=== PATIENT | female | born 1990 | race American Indian/Alaskan Native ===

== ENCOUNTER 2016-06-20 11:14 | Emergency (ER) | payer SELFPAY ==
[2016-06-20 11:36] VITALS: BP 108/74
--- NOTE | 2016-06-20 13:37 | Emergency Department Report ---
HPI - General Chief Complaint: Dental/Oral Time Seen by Provider: 06/20/16 13:05 - HPI HPI: Patient here complaining of toothache to her right upper back tooth that comes and goes. She said it feels like it swollen at the area. She says she's been taking [id number] pain medication but it's not helping. Denies any fever or chills. Denies any facial swelling or trauma. Patient reports that she has an appointment with her dentist in [place] on Tuesday but she is having a lot of pain at 6 out of 10 and she cannot wait denies any sore throat or drooling. Denies any nausea vomiting. ED Past Medical Hx - Past Medical History Previous Medical History?: Yes Hx Asthma: Yes - Surgical History Past Surgical History?: No - Family History Family history: no significant - Social History Smoking Status: Current Every Day Smoker Substance Use Type: Alcohol - Medications Home Medications: Home Medications Medication Instructions Recorded Confirmed Last Taken Type ALBUTEROL Inhaler [Proair] 2 puff IH QID PRN 08/20/14 08/20/14 Unknown History Acetaminophen/Codeine [Tylenol #3] 1 tab PO Q6H PRN #20 tab 06/20/16 Unknown Rx Amoxicillin [Amoxicillin TAB] 875 mg PO BID #20 tablet 06/20/16 Unknown Rx Ibuprofen [Motrin] 600 mg PO Q8H PRN #21 tablet 06/20/16 Unknown Rx ED Review of Systems ROS: Stated complaint: RT SIDE JAW PAIN Other details as noted in HPI Comment: All other systems reviewed and negative Constitutional: denies: chills, fever Eyes: denies: eye discharge ENT: dental pain. denies: ear pain, throat pain, congestion Respiratory: no symptoms reported Cardiovascular: denies: chest pain, palpitations, edema, syncope Gastrointestinal: denies: nausea, vomiting Musculoskeletal: denies: back pain, arthralgia Skin: denies: rash Neurological: denies: headache Physical Exam - Physical Exam Vital Signs: Vital Signs 06/20/16 11:33 Temperature 98.8 F Pulse Rate 73 Respiratory 16 Rate Blood Pressure 108/74 O2 Sat by Pulse 100 Oximetry General: This is a 26-year-old female well-nourished well-developed in no acute distress. Physical Exam: Head: Normocephalic atraumatic Mouth: Moist, no pharyngeal exudate or erythema. Uvula is midline and oral airway is patent. No gingival enlargement . Positive dental tenderness around tooth #1 noted fracture of tooth #1. Patient with some dental caries to upper and lower teeth right and left. No facial swelling. No peritonsillar abscesses. Neck: Supple, no C-spine tenderness, no tracheal deviation. Nontender to palpate. no adenopathy Ears: Bilateral TMs pearly barajas.bilateral EAC without any redness swelling or drainage Eyes: Bilateral pupils equal and reactive to light, bilateral EOM intact. Bilateral sclera and conjunctiva without injection. Normal accommodation Nose: Mucosa moist, normal mucosa. maxillary and frontal sinus non-tender to palpate. Lungs: Clear to auscultate bilaterally no rhonchi wheezes or rales. Normal work of breathing extremity; No CCE. +2 pulses. No neurovascular compromise Cardiovascular: S1-S2, regular rate rhythm. No murmurs. Skin: clean Dry and intact no rash no lesions Psych: Normal mood and behavior ED Course Vital Signs 06/20/16 11:33 Temperature 98.8 F Pulse Rate 73 Respiratory 16 Rate Blood Pressure 108/74 O2 Sat by Pulse 100 Oximetry - Reevaluation(s) Reevaluation #1: 06/20/16 13:50 Patient stable ED Medical Decision Making - Medical Decision Making ED course: I discussed the patient after evaluation that she has to follow-up with her dentist and to keep dental appointment this coming Tuesday. I informed that she has dental caries and fractured tooth and she will need to seek dental care to prevent getting widespread infection. sinus tenderness diagnosis and need to follow-up with dentist. Patient discharged home with prescription for amoxicillin, Motrin and Tylenol No. 3. Critical care attestation.: If time is entered above; I have spent that time in minutes in the direct care of this critically ill patient, excluding procedure time. ED Disposition Clinical Impression: Dental caries, Toothache Tooth fracture Qualifiers: Encounter type: initial encounter Fracture type: closed Qualified Code(s): S02.5XXA - Fracture of tooth (traumatic), initial encounter for closed fracture Disposition: DISCHARGED TO HOME OR SELFCARE Is pt being admited?: No Does the pt Need Aspirin: No Condition: Stable Instructions: Dental Caries (ED), Toothache (ED) Additional Instructions: Please follow up with your dentist as scheduled on Tuesday. Take antibiotic as prescribed. You have several dental caries and this can lead to widespread infection so he will need to follow-up with dentist for evaluation and treatment. Tylenol 3 and make you drowsy so please do not drive or operate heavy machinery while taking this medication. Prescriptions: Acetaminophen/Codeine [Tylenol #3] 1 tab PO Q6H PRN #20 tab PRN Reason: Toothache Amoxicillin [Amoxicillin TAB] 875 mg PO BID #20 tablet Ibuprofen [Motrin] 600 mg PO Q8H PRN #21 tablet PRN Reason: Pain Referrals: PRIMARY CARE,MD [Primary Care Provider] - 2-3 Days Your, Dentist [Other] - 3-5 Days Forms: Work/School Release Form(ED)
== END 2016-06-20 14:10 | disposition home or self-care (01) ==
LOC: ED 11:14
DX: S02.5XXA Fracture of tooth (traumatic), initial encounter for closed fracture (principal); K02.9 Dental caries, unspecified; K08.89 Other specified disorders of teeth and supporting structures; J45.909 Unspecified asthma, uncomplicated; F17.200 Nicotine dependence, unspecified, uncomplicated; X58.XXXA Exposure to other specified factors, initial encounter; Y93.9 Activity, unspecified; Y92.9 Unspecified place or not applicable; Y99.9 Unspecified external cause status
CPT/HCPCS: 99281